=== PATIENT | female | born 1995 | race Caucasian/White ===

== ENCOUNTER 2019-12-02 08:57 | Emergency (ER) | payer MEDICAID ==
[~2019-12-02] VITALS: Ht 157.5 cm; Wt 93.0 kg
[2019-12-02] MEDS ORDERED: ACETAMINOPHEN WITH CODEINE 300/30MG TABLET PO STA (09:45)
[2019-12-02] MEDS ORDERED: ONDANSETRON 4MG ODT PO STA (09:45)
[2019-12-02 10:18] LABS: CHLORIDE 107 mEq/L (98-107)
[2019-12-02 10:19] LABS: BASOPHILS % 0.6 % (0.0-2.0); EOSINOPHILS % 1.3 % (0.0-5.0); HEMATOCRIT. 38.7 % (36.0-48.0); HEMOGLOBIN. 13.4 g/dL (12.0-16.0); MEAN CORPUSCULAR HEMOGLOBIN 30.3 pg (28.0-32.0); MEAN CORPUSCULAR VOLUME 87.8 fL (81.0-99.0); NEUTROPHILS % 61.1 % (40.0-76.0); PLATELET 280 x1000/uL (130-400); RED BLOOD CELL COUNT 4.41 mill/uL (4.2-5.4)
[2019-12-02 10:21] LABS: PROTHROMBIN TIME 10.9 sec (9.6-11.0)
[2019-12-02 10:33] LABS: COLOR URINE YELLOW (YELLOW); KETONES URINE NEGATIVE (NEGATIVE); LEUKOCYTE ESTERASE URINE NEGATIVE (NEGATIVE); NITRITE URINE NEGATIVE (NEGATIVE); OCCULT BLOOD URINE NEGATIVE (NEGATIVE); PROTEIN URINE NEGATIVE (NEGATIVE); SPECIFIC GRAVITY URINE 1.021 (1.005-1.030); UROBILINOGEN URINE 0.2 E.U./dL (0.2-1.0)
[2019-12-02 10:38] LABS: HCG SCREEN NEGATIVE
[2019-12-02 10:56] LABS: CLARITY URINE CLEAR (CLEAR)
[2019-12-02 12:45] VITALS: BP 117/72
== END 2019-12-02 12:47 | disposition home or self-care (01) ==
LOC: ER 08:57
DX: D27.9 Benign neoplasm of unspecified ovary (principal)
CPT/HCPCS: 36415; 74176; 80053; 81003; 81025; 83690; 84703; 85025; 85610; 93005; 99285; Q0162

== ENCOUNTER 2019-12-16 11:40 | Emergency (ER) | payer MEDICAID ==
[~2019-12-16] VITALS: Ht 157.5 cm; Wt 89.0 kg
[2019-12-16] MEDS ORDERED: OXYCODONE HCL/ACETAMINOPHEN 5/325MG TABLET PO ONE (12:15)
[2019-12-16 12:40] LABS: BASOPHILS % 0.9 % (0.0-2.0); EOSINOPHILS % 1.7 % (0.0-5.0); HEMATOCRIT. 37.7 % (36.0-48.0); HEMOGLOBIN. 12.8 g/dL (12.0-16.0); LYMPHOCYTES % 31.9 % (20.0-50.0); MEAN CORPUSCULAR HEMOGLOBIN 29.9 pg (28.0-32.0); MEAN CORPUSCULAR VOLUME 88.1 fL (81.0-99.0); MEAN PLATELET VOLUME 7.9 fl (7.4-10.4); MONOCYTES % 8.2 % (2.0-8.0); NEUTROPHILS % 57.3 % (40.0-76.0); PLATELET 277 x1000/uL (130-400); RED BLOOD CELL COUNT 4.28 mill/uL (4.2-5.4); RED CELL DISTRIBUTION WIDTH 13.9 % (11.6-14.6)
[2019-12-16 12:44] LABS: CHLORIDE 109 mEq/L (98-107)
[2019-12-16 12:55] VITALS: BP 116/60
[2019-12-16 12:57] LABS: B-HCG QUANTITATIVE < 1 mIU/mL (<3)
== END 2019-12-16 13:05 | disposition home or self-care (01) ==
LOC: ER 11:40
DX: R10.2 Pelvic and perineal pain (principal); D27.9 Benign neoplasm of unspecified ovary; Z98.890 Other specified postprocedural states
CPT/HCPCS: 36415; 80053; 81025; 84702; 85025; 86850; 86900; 93005; 99284

== ENCOUNTER 2020-05-02 15:49 | Emergency (ER) | payer SELFPAY | END 2020-05-02 16:30 | disposition home or self-care (01) | LOC: ER 15:49 | DX: Z53.21 Procedure and treatment not carried out due to patient leaving prior to being seen by health care provider (principal) ==

== ENCOUNTER 2020-07-26 08:43 | Emergency (ER) | payer OTHER ==
[~2020-07-26] VITALS: Ht 157.5 cm; Wt 91.0 kg
[2020-07-26] MEDS ORDERED: MAGNESIUM/ALUMINUM HYDROXIDE/SIMETHICONE 30ML UDC PO STA (09:27)
[2020-07-26] MEDS ORDERED: ONDANSETRON HCL 4MG/2ML INJ IV STA (09:27)
[2020-07-26] MEDS ORDERED: FAMOTIDINE 20MG/2ML VIAL IV ONE (09:30)
[2020-07-26] MEDS ORDERED: SODIUM CHLORIDE 0.9% 1,000 ML IV ONE (09:30)
[2020-07-26 09:41] LABS: BASOPHILS % 0.3 % (0.0-2.0); HEMATOCRIT. 39.8 % (36.0-48.0); HEMOGLOBIN. 13.3 g/dL (12.0-16.0); LYMPHOCYTES % 8.2 % (20.0-50.0); MEAN CORPUSCULAR HEMOGLOBIN 29.1 pg (28.0-32.0); MEAN PLATELET VOLUME 8.3 fl (7.4-10.4); MONOCYTES % 2.5 % (2.0-8.0); PLATELET 309 x1000/uL (130-400); RED BLOOD CELL COUNT 4.58 mill/uL (4.2-5.4); RED CELL DISTRIBUTION WIDTH 14.6 % (11.6-14.6)
[2020-07-26] MEDS ORDERED: MORPHINE SULFATE 4 MG/ML CPJ (NOT FOR IM USE) IV ONE (09:45)
[2020-07-26 09:50] LABS: CHLORIDE 108 mEq/L (98-107)
[2020-07-26 11:20] VITALS: BP 109/65
== END 2020-07-26 11:38 | disposition home or self-care (01) ==
LOC: ER 08:50
DX: T39.1X1A Poisoning by 4-Aminophenol derivatives, accidental (unintentional), initial encounter (principal); K29.70 Gastritis, unspecified, without bleeding; R10.11 Right upper quadrant pain; Y92.89 Other specified places as the place of occurrence of the external cause; Z87.19 Personal history of other diseases of the digestive system
CPT/HCPCS: 36415; 76705; 80053; 80307; 80329; 83690; 85025; 93005; 96374; 96375; 99285; J2270; J2405; J3490; J7030

== ENCOUNTER 2021-12-20 10:22 | Emergency (ER) | payer MEDICAID, OTHER ==
[~2021-12-20] VITALS: Ht 157.5 cm; Wt 91.0 kg
[2021-12-20 10:24] VITALS: BP 110/61
[2021-12-20 13:36] LABS: EOSINOPHILS % 1.2 % (0.0-5.0); HEMATOCRIT. 39.8 % (36.0-48.0); HEMOGLOBIN. 13.6 g/dL (12.0-16.0); LYMPHOCYTES % 36.5 % (20.0-50.0); MEAN CORPUSCULAR HEMOGLOBIN 30.1 pg (28.0-32.0); MEAN PLATELET VOLUME 7.8 fl (7.4-10.4); MONOCYTES % 7.9 % (2.0-8.0); NEUTROPHILS % 53.4 % (40.0-76.0); PLATELET 304 x1000/uL (130-400); RED BLOOD CELL COUNT 4.52 mill/uL (4.2-5.4)
[2021-12-20 13:48] LABS: CHLORIDE 106 mEq/L (98-107)
[2021-12-20 13:53] LABS: HCG SCREEN NEGATIVE
[2021-12-20 14:08] LABS: CLARITY URINE CLOUDY (CLEAR); COLOR URINE YELLOW (YELLOW); KETONES URINE TRACE (NEGATIVE); LEUKOCYTE ESTERASE URINE 3+ (NEGATIVE); NITRITE URINE NEGATIVE (NEGATIVE); OCCULT BLOOD URINE NEGATIVE (NEGATIVE); PROTEIN URINE TRACE (NEGATIVE); SPECIFIC GRAVITY URINE 1.029 (1.005-1.030)
[2021-12-20] MEDS ORDERED: KETOROLAC 60MG/2ML VIAL IM ONE (15:15)
[2021-12-20] MEDS ORDERED: CEFP200T13 MT (15:53)
[2021-12-20] MEDS ORDERED: IBUP-2029 MT (15:53)
== END 2021-12-20 16:02 | disposition home or self-care (01) ==
LOC: ER 10:22
DX: K43.9 Ventral hernia without obstruction or gangrene (principal)
CPT/HCPCS: 36415; 74176; 80053; 81003; 83690; 84703; 85025; 87086; 96372; 99284; J1885

== ENCOUNTER 2022-07-23 17:10 | Emergency (ER) | payer MEDICAID, OTHER ==
[~2022-07-23] VITALS: Ht 157.5 cm; Wt 91.0 kg
[~2022-07-23 17:10] MED LIST: CEFP200T13 MT; IBUP-2029 MT
[2022-07-23 21:40] LABS: BASOPHILS % 0.8 % (0.0-2.0); EOSINOPHILS % 0.6 % (0.0-5.0); HEMATOCRIT. 39.9 % (36.0-48.0); HEMOGLOBIN. 13.5 g/dL (12.0-16.0); LYMPHOCYTES % 33.8 % (20.0-50.0); MEAN CORPUSCULAR HEMOGLOBIN 29.5 pg (28.0-32.0); MEAN CORPUSCULAR VOLUME 87.3 fL (81.0-99.0); MEAN PLATELET VOLUME 7.6 fl (7.4-10.4); MONOCYTES % 5.8 % (2.0-8.0); PLATELET 311 x1000/uL (130-400); RED BLOOD CELL COUNT 4.57 mill/uL (4.2-5.4); RED CELL DISTRIBUTION WIDTH 14.5 % (11.6-14.6)
[2022-07-23 21:51] LABS: CLARITY URINE CLEAR (CLEAR); COLOR URINE YELLOW (YELLOW); KETONES URINE 1+ (NEGATIVE); LEUKOCYTE ESTERASE URINE NEGATIVE (NEGATIVE); NITRITE URINE NEGATIVE (NEGATIVE); OCCULT BLOOD URINE NEGATIVE (NEGATIVE); PROTEIN URINE NEGATIVE (NEGATIVE); SPECIFIC GRAVITY URINE 1.028 (1.005-1.030)
[2022-07-23 21:54] LABS: CHLORIDE 106 mEq/L (98-107)
[2022-07-23 21:56] LABS: HCG SCREEN NEGATIVE
[2022-07-23] MEDS ORDERED: KETOROLAC 30MG/ML VIAL IV NR (22:30)
[2022-07-24] MEDS ORDERED: IOHEXOL-300 100 ML BOTTLE ONE (01:09)
[2022-07-24] MEDS ORDERED: MORPHINE SULFATE 2 MG/ML CPJ (NOT FOR IM USE) IV ONE (01:45)
[2022-07-24 01:55] VITALS: BP 125/75
[2022-07-24] MEDS ORDERED: IBUP-2028 MT (01:59)
== END 2022-07-24 05:24 | disposition home or self-care (01) ==
LOC: ER 17:10
DX: R10.33 Periumbilical pain (principal); Z98.890 Other specified postprocedural states
CPT/HCPCS: 36415; 74177; 80053; 81003; 83690; 84703; 85025; 96374; 96375; 99285; J1885; J2270; Q9967; Z7610